=== PATIENT | male | born 1975 | race Caucasian/White ===

== ENCOUNTER 2020-05-18 07:21 | Inpatient (IN) | payer SELFPAY ==
--- NOTE | 2020-05-18 07:30 | PDOC ---
Attending Attestation - Resident Resident Name: VadimBest marcus - ED Attending Attestation I have performed the following: I have examined & evaluated the patient, The case was reviewed & discussed with the resident, I agree w/resident's findings & plan, Exceptions are as noted - HPI HPI: 05/18/20 07:28 45 M with h/o ETOH abuse, HLD, presenting to ED with N+V and abdominal pain. Pt reports mid-epigastric pain associated with N+V that started 2 days ago. He reports several episodes of NBNB vomitus. No diarrhea/constipation. Pt admits to daily heavy ETOH use, liquor and beer. - Physicial Exam PE: 05/18/20 07:29 See resident exam - Medical Decision Making 05/18/20 07:29 45 M with abdominal pain, N+V. - Labs, lipase - GI cocktail 05/18/20 11:50 Labs with elevated lactate, otherwise normal CT unremarkable Will repeat lactate, reassess 05/18/20 13:34 Lactate uptrending despite 2L fluid resuscitation Pt continues to have abdominal pain Discharge - Discharge Information Problems reviewed: Yes Clinical Impression/Diagnosis: Abdominal pain, Alcohol abuse, Gastritis - Follow up/Referral - Patient Discharge Instructions - Post Discharge Activity
[2020-05-18] MEDS ORDERED: morphine SULFATE 4 MG/ML VIAL IVPUSH ONE (07:31)
[2020-05-18] MEDS ORDERED: LACTATED RINGERS SOLUTION 1000 ML INFUS.BAG IV ONE ×3 (07:33→12:16)
[2020-05-18] MEDS ORDERED: ONDANSETRON 4 MG/2 ML VIAL IVPUSH ONE (07:33)
--- NOTE | 2020-05-18 07:35 | PDOC ---
History of Present Illness - General Chief Complaint: Pain, Acute Stated Complaint: ALCOHOL INTOXICATION Time Seen by Provider: 05/18/20 07:27 History Source: Patient - History of Present Illness Initial Comments: 05/18/20 07:34 2 days N/V/abdominal pain reports 30x nbnb vomiting over 2 days etoh intox, "bottle of liquor" + beer requesting detox Friend called EMS, concerned for vomiting, abdominal pain on exam: tender abdomen w/guarding tachycardic on arrival Past History - Medical History Allergies/Adverse Reactions: Allergies Allergy/AdvReac Type Severity Reaction Status Date / Time No Known Allergies Allergy Verified 05/18/20 07:48 Review of Systems - Review of Systems Able to Perform ROS?: Yes Comments:: 05/18/20 07:43 GENERAL/CONSTITUTIONAL: Intoxication. No fever or chills. No weakness. HEAD, EYES, EARS, NOSE AND THROAT: No change in vision. No ear pain or discharge. No sore throat. CARDIOVASCULAR: No chest pain or shortness of breath RESPIRATORY: No cough, wheezing, or hemoptysis. GASTROINTESTINAL: Nausea, vomiting, abdominal pain. No diarrhea or constipation. GENITOURINARY: No dysuria, frequency, or change in urination. MUSCULOSKELETAL: No joint or muscle swelling or pain. No neck or back pain. SKIN: No rash NEUROLOGIC: No headache, vertigo, loss of consciousness, or change in strength/sensation. ENDOCRINE: No increased thirst. No abnormal weight change HEMATOLOGIC/LYMPHATIC: No anemia, easy bleeding, or history of blood clots. ALLERGIC/IMMUNOLOGIC: No hives or skin allergy. *Physical Exam - Physical Exam 05/18/20 07:44 GENERAL: Awake, alert, and fully oriented, groaning. Intoxicated. HEAD: No signs of trauma, normocephalic, atraumatic EYES: PERRLA, EOMI, sclera anicteric, conjunctiva clear ENT: Auricles normal inspection, hearing grossly normal, nares patent, oropharynx clear without exudates. Moist mucosa NECK: Normal ROM, supple, no lymphadenopathy, JVD, or masses LUNGS: No distress, speaks full sentences, clear to auscultation bilaterally HEART: Regular rate and rhythm, normal S1 and S2, no murmurs, rubs or gallops, peripheral pulses normal and equal bilaterally. ABDOMEN: Diffusely tender with guarding. Soft, normoactive bowel sounds. No rebound. No masses EXTREMITIES : Normal inspection, Normal range of motion, no edema. No clubbing or cyanosis NEUROLOGICAL: Cranial nerves II through XII grossly intact. Normal speech, no focal sensorimotor deficits SKIN: Warm, Dry, normal turgor, no rashes or lesions noted ED Treatment Course - LABORATORY CBC & Chemistry Diagram: 05/18/20 07:25 05/18/20 07:25 - RADIOLOGY Radiology Studies Ordered: Category Date Time Status ABDOMEN & PELVIS CT WITH CONTR [CT] Stat CT Scan 05/18/20 07:31 Ordered CHEST X-RAY PORTABLE* [RAD] Stat Radiology 05/18/20 07:32 Ordered Medical Decision Making - Medical Decision Making 05/18/20 07:36 45M p/w etoh intox, abdominal pain, frequent n/v. Ddx pancreatitis, appendicitis, cholecystitis, ACS Plan: CBC CMP EKG CXR Cardiac profile Lactate PT/INR, APTT Lipase Ammonia Morphine 4mg 1L LR Zofran Dispo: Pending 05/18/20 10:20 CT - negative for acute process
[2020-05-18] MEDS ORDERED: morphine SULFATE 4 MG/ML VIAL ONE ×2 (07:50→12:19)
[2020-05-18 08:13] LABS: HEMATOCRIT 42.6 % (35.4-49); HEMOGLOBIN 14.9 GM/dL (11.7-16.9); MCH 31.3 pg (25.7-33.7); MCHC 34.9 g/dl (32.0-35.9); MEAN CELL VOLUME 89.7 fl (80-96); MEAN PLT VOLUME 9.2 fl (7.5-11.1); PLATELET COUNT 205 K/MM3 (134-434); RBC 4.75 M/mm3 (4.00-5.60); RDW 13.4 % (11.9-15.9); WHITE BLOOD COUNT 11.6 K/mm3 (4.0-10.0)
[2020-05-18 08:33] LABS: INR 0.89 (0.83-1.09); PROTHROMBIN TIME (PATIENT) 10.5 SEC (9.7-13.0)
[2020-05-18 08:35] LABS: ACTIVATED PTT 30.9 SECONDS (25.2-36.5)
[2020-05-18 08:54] LABS: ALBUMIN 3.9 g/dl (3.4-5.0); ANION GAP 14 MMOL/L (8-16); BILIRUBIN,TOTAL 0.5 mg/dL (0.2-1); BLOOD UREA NITROGEN 5.6 mg/dL (7-18); CALCIUM 8.7 mg/dL (8.5-10.1); CHLORIDE 97 mmol/L (98-107); CO2 25 mmol/L (21-32); CREATININE 0.7 mg/dL (0.55-1.3); GLUCOSE,RANDOM 95 mg/dL (74-106); LIPASE 294 U/L (73-393); POTASSIUM 3.2 mmol/L (3.5-5.1); SGOT/AST 117 U/L (15-37); SGPT/ALT 92 U/L (13-61); SODIUM 136 mmol/L (136-145); TOT PROT 7.3 g/dl (6.4-8.2)
[2020-05-18 08:57] LABS: ALK PHOS 122 U/L (45-117)
[2020-05-18] MEDS ORDERED: FAMOTIDINE 20 MG/50 ML IVPB 20 MG/50 ML MG IVPB ONE ×2 (09:11→09:52)
[2020-05-18] MEDS ORDERED: SODIUM CHLORIDE 1,000 ML IV STA (10:42)
--- NOTE | 2020-05-18 11:35 | EKG ---
Test Reason : Blood Pressure : / mmHG Vent. Rate : 107 BPM Atrial Rate : 107 BPM P-R Int : 122 ms QRS Dur : 084 ms QT Int : 348 ms P-R-T Axes : 017 054 039 degrees QTc Int : 464 ms POOR DATA QUALITY, INTERPRETATION MAY BE ADVERSELY AFFECTED SINUS TACHYCARDIA OTHERWISE NORMAL ECG NO PREVIOUS ECGS AVAILABLE Confirmed by INDIA ARELLANO MD ([id number]) on 05/18/2020 11:34:34 AM Referred By: Confirmed By:INDIA ARELLANO MD
[2020-05-18] MEDS ORDERED: morphine CARPU-JECT 4 MG/1 ML DISP.SYRIN IVPUSH ONE (12:16)
--- NOTE | 2020-05-18 17:12 | HP ---
CHIEF COMPLAINT: Etoh withdrawal PCP: denies HISTORY OF PRESENT ILLNESS: 45 M h/o Etoh abuse, presents with abdominal pain 2-3 days. Last drink 7-8 hours prior to admission. Endorses generalized abomdinal pain a/w nausea but no vomiting seen in ED. Denies diarrhea/CP/SOB/Cough, denies black stools. Poor to follow up, abuses alcohol regularly. ER course was notable for: (1) Fluids given (2) LA >3 despite fluids (3) CT A/P C+, neg. for acute pathology Recent Travel: denies PAST MEDICAL HISTORY: as above PAST SURGICAL HISTORY: denies Social History: Smoking: denies Alcohol: drinks regularly Drugs: denies Allergies No Known Allergies Allergy (Verified 05/18/20 07:48) HOME MEDICATIONS: denies taking any meds PHYSICAL EXAMINATION Vital Signs - 24 hr 05/18/20 05/18/20 05/18/20 07:32 11:15 12:36 Temperature 99 F 98.1 F Pulse Rate 113 H Pulse Rate [ 93 H 96 H Right Radial] Respiratory 16 22 H 19 Rate Blood Pressure 130/89 Blood Pressure 144/85 125/77 [Left Arm] O2 Sat by Pulse 99 99 96 Oximetry (%) 05/18/20 14:58 Temperature Pulse Rate Pulse Rate [ 103 H Right Radial] Respiratory 20 Rate Blood Pressure Blood Pressure 139/95 [Left Arm] O2 Sat by Pulse 99 Oximetry (%) GA AAox3, tremulous, tired appearing, speaking Cook Islander HEENT NC/AT, EOMi, RUTH, neck supple Chest CTAB CVS S1, S2+, RRR Abd generalized tenderness, epigastric tenderness to palpation w/ rebound, no guarding BS+ Ext no LE edema Laboratory Results - last 24 hr 05/18/20 05/18/20 05/18/20 07:25 07:25 07:25 WBC 11.6 H RBC 4.75 Hgb 14.9 Hct 42.6 MCV 89.7 MCH 31.3 MCHC 34.9 RDW 13.4 Plt Count 205 MPV 9.2 PT with INR 10.50 INR 0.89 PTT (Actin FS) 30.9 Sodium 136 Potassium 3.2 L Chloride 97 L Carbon Dioxide 25 Anion Gap 14 BUN 5.6 L Creatinine 0.7 Est GFR (CKD-EPI)AfAm 132.09 Est GFR (CKD-EPI)NonAf 113.97 POC Glucometer Random Glucose 95 Lactic Acid Calcium 8.7 Total Bilirubin 0.5 AST 117 H ALT 92 H Alkaline Phosphatase 122 H Ammonia Creatine Kinase 229 Creatine Kinase Index No Result Required. CK-MB (CK-2) < 1.0 Troponin I < 0.02 Total Protein 7.3 Albumin 3.9 Lipase 294 Blood Type Antibody Screen 05/18/20 05/18/20 05/18/20 07:25 07:25 07:25 WBC RBC Hgb Hct MCV MCH MCHC RDW Plt Count MPV PT with INR INR PTT (Actin FS) Sodium Potassium Chloride Carbon Dioxide Anion Gap BUN Creatinine Est GFR (CKD-EPI)AfAm Est GFR (CKD-EPI)NonAf POC Glucometer Random Glucose Lactic Acid 3.1 H* Calcium Total Bilirubin AST ALT Alkaline Phosphatase Ammonia 29.80 Creatine Kinase Creatine Kinase Index CK-MB (CK-2) Troponin I Total Protein Albumin Lipase Blood Type O POSITIVE Antibody Screen Negative 05/18/20 05/18/20 05/18/20 07:35 08:03 11:35 WBC RBC Hgb Hct MCV MCH MCHC RDW Plt Count MPV PT with INR INR PTT (Actin FS) Sodium Potassium Chloride Carbon Dioxide Anion Gap BUN Creatinine Est GFR (CKD-EPI)AfAm Est GFR (CKD-EPI)NonAf POC Glucometer 110 Random Glucose Lactic Acid 3.6 H* Calcium Total Bilirubin AST ALT Alkaline Phosphatase Ammonia Creatine Kinase Creatine Kinase Index CK-MB (CK-2) Troponin I Total Protein Albumin Lipase Blood Type O POSITIVE Antibody Screen Negative 05/18/20 16:10 WBC RBC Hgb Hct MCV MCH MCHC RDW Plt Count MPV PT with INR INR PTT (Actin FS) Sodium Potassium Chloride Carbon Dioxide Anion Gap BUN Creatinine Est GFR (CKD-EPI)AfAm Est GFR (CKD-EPI)NonAf POC Glucometer 101 Random Glucose Lactic Acid Calcium Total Bilirubin AST ALT Alkaline Phosphatase Ammonia Creatine Kinase Creatine Kinase Index CK-MB (CK-2) Troponin I Total Protein Albumin Lipase Blood Type Antibody Screen ASSESSMENT/PLAN: 45 M Etoh abuse Etoh withdrawal Suspected Etoh induced gastritis v.s. UGIB Lactic acidosis d/t alcoholic/starvation ketosis Plan: Aggressive IVF w/ LR (K repalcement) Serial abdominal exams FOBT if positive, consult GI for EGD/Colonoscopy PPI BID Full liquid diet for now Avoid AC/NSAIDs SCD for now until FOBT negative/GIB ruled out Serial CIWA, Librium protocol Visit type - Emergency Visit Emergency Visit: Yes ED Registration Date: 05/18/20 Care time: The patient presented to the Emergency Department on the above date and was hospitalized for further evaluation of their emergent condition. - New Patient This patient is new to me today: Yes Date on this admission: 05/18/20 - Critical Care Critical Care patient: No
[2020-05-18] MEDS ORDERED: POTASSIUM CHLORIDE TABS 20 MEQ TABLET.ER (FP) PO ONE (17:14)
[2020-05-18] MEDS ORDERED: chlordiazePOXIDE HCL 25 MG CAPSULE PO ONE (17:17)
[2020-05-18] MEDS ORDERED: chlordiazePOXIDE HCL 10 MG CAPSULE PO PRN (17:17)
[2020-05-18] MEDS: LACTATED RINGERS SOLUTION 1,000 ML/1,000 ML INFUS.BAG IV SCH (17:36)
[2020-05-18] MEDS: MULTIVITAMINS (DAILY MVI) TABLET (FP) PO SCH (17:36)
[2020-05-18] MEDS: FOLIC ACID 1 MG TABLET (FP) PO SCH (17:36)
[2020-05-18] MEDS: THIAMINE HCL 100 MG TABLET (FP) PO SCH (17:39)
[2020-05-18 18:19] VITALS: BMI 32.5
[2020-05-18] MEDS: ACETAMINOPHEN 325 MG TABLET (FP) PO PRN (18:46)
[2020-05-18] MEDS: chlordiazePOXIDE HCL 25 MG CAPSULE PO SCH (21:17)
[2020-05-18] MEDS: PANTOPRAZOLE 40 MG TABLET PO SCH (21:17)
[2020-05-19] MEDS: LACTATED RINGERS SOLUTION 1,000 ML/1,000 ML INFUS.BAG IV SCH ×3 (03:50→22:07)
[2020-05-19] MEDS: chlordiazePOXIDE HCL 25 MG CAPSULE PO SCH ×4 (05:22→22:06)
[2020-05-19 06:47] LABS: BASO % 0.4 % (0-2.0); EOS % 4.2 % (0-4.5); HEMATOCRIT 39.5 % (35.4-49); HEMOGLOBIN 13.5 GM/dL (11.7-16.9); LYMPH % 35.2 % (8-40); MCH 30.9 pg (25.7-33.7); MCHC 34.3 g/dl (32.0-35.9); MEAN CELL VOLUME 90.2 fl (80-96); MONO % 5.7 % (3.8-10.2); NEUT % 54.5 % (42.8-82.8); PLATELET COUNT 172 K/MM3 (134-434); RBC 4.38 M/mm3 (4.00-5.60); RDW 13.2 % (11.9-15.9); WHITE BLOOD COUNT 4.9 K/mm3 (4.0-10.0)
[2020-05-19 07:19] LABS: ALBUMIN 3.5 g/dl (3.4-5.0); BILIRUBIN,TOTAL 0.8 mg/dL (0.2-1); BLOOD UREA NITROGEN 8.4 mg/dL (7-18); CALCIUM 8.9 mg/dL (8.5-10.1); CREATININE 0.7 mg/dL (0.55-1.3); POTASSIUM 3.7 mmol/L (3.5-5.1); TOT PROT 6.5 g/dl (6.4-8.2)
[2020-05-19] MEDS: ACETAMINOPHEN 325 MG TABLET (FP) PO PRN (08:50)
[2020-05-19] MEDS: FOLIC ACID 1 MG TABLET (FP) PO SCH (10:04)
[2020-05-19] MEDS: MULTIVITAMINS (DAILY MVI) TABLET (FP) PO SCH (10:04)
[2020-05-19] MEDS: PANTOPRAZOLE 40 MG TABLET PO SCH ×2 (10:05→22:06)
[2020-05-19] MEDS: THIAMINE HCL 100 MG TABLET (FP) PO SCH (10:05)
[2020-05-19] MEDS ORDERED: LORazepam 2 MG/ML SDV VIAL IVPUSH PRN (12:24)
--- NOTE | 2020-05-19 12:55 | PN ---
Teaching Attending Note Name of Resident: Lowell Ayoub ATTENDING PHYSICIAN STATEMENT I saw and evaluated the patient. I reviewed the resident's note and discussed the case with the resident. I agree with the resident's findings and plan as documented. SUBJECTIVE: Seen and examined at bedside. Patient is alert oriented x3 in Armenian but appea rs lethargic. Has positive hand tremors and tongue fasciculations. CT abdomen pelvis and ultrasound both negative for acute intra-abdominal pathology. OBJECTIVE: Last Vital Signs Temp Pulse Resp BP Pulse Ox 99.3 F 98 H 20 125/80 96 05/19/20 10:02 05/19/20 10:02 05/19/20 10:02 05/19/20 10:02 05/18/20 21:00 PE; per resident note Labs/Imaging: reviewed ASSESSMENT AND PLAN: 45-year-old male past medical history of EtOH abuse, presents with abdominal pain for 2 to 3 days with associated nausea and vomiting. Admitted for alcohol withdrawal #Alcohol withdrawal IV fluids Librium taper PRN Ativan CIWA protocol Replete electrolytes Thiamine and B12 #Abdominal pain CT and ultrasound both negative for acute intra-abdominal pathology. Likely represents EtOH induced gastritis PPI twice daily #Elevated lactic acid: Resolved Likely in the setting of dehydration/EtOH. No sign of infectious etiology
--- NOTE | 2020-05-19 14:08 | PN ---
Physical Exam: SUBJECTIVE: Patient seen and examined at bedside. No acute distress. No acute events overnight. OBJECTIVE: Vital Signs Period Temp Pulse Resp BP Sys/Waldrop Pulse Ox Last 24 Hr 98.8 F-99.3 F 88-103 19-20 114-139/70-95 96-99 GENERAL: NAD. Not tremulous HEAD: Normal with no signs of trauma. EYES: EOMI Sclera Clear ENT: MMM NECK: Trachea midline, full range of motion, supple. LUNGS: Clear HEART: RRR S1S2 ABDOMEN: Soft. Mild epigastric tenderness. No guarding or rebound. EXTREMITIES: No CCE NEUROLOGICAL: Cranial nerves II through XII grossly intact. PSYCH: Normal mood, normal affect. Laboratory Results - last 24 hr 05/18/20 05/18/20 05/19/20 16:10 21:05 06:23 WBC 4.9 RBC 4.38 Hgb 13.5 Hct 39.5 MCV 90.2 MCH 30.9 MCHC 34.3 RDW 13.2 Plt Count 172 MPV 9.0 Absolute Neuts (auto) 2.7 Neutrophils % 54.5 Lymphocytes % 35.2 Monocytes % 5.7 Eosinophils % 4.2 Basophils % 0.4 Nucleated RBC % 0 Sodium Potassium Chloride Carbon Dioxide Anion Gap BUN Creatinine Est GFR (CKD-EPI)AfAm Est GFR (CKD-EPI)NonAf POC Glucometer 101 Random Glucose Lactic Acid 1.9 Calcium Total Bilirubin AST ALT Alkaline Phosphatase Total Protein Albumin 05/19/20 06:23 WBC RBC Hgb Hct MCV MCH MCHC RDW Plt Count MPV Absolute Neuts (auto) Neutrophils % Lymphocytes % Monocytes % Eosinophils % Basophils % Nucleated RBC % Sodium 136 Potassium 3.7 Chloride 99 Carbon Dioxide 29 Anion Gap 8 BUN 8.4 Creatinine 0.7 Est GFR (CKD-EPI)AfAm 132.09 Est GFR (CKD-EPI)NonAf 113.97 POC Glucometer Random Glucose 96 Lactic Acid Calcium 8.9 Total Bilirubin 0.8 AST 57 H ALT 66 H Alkaline Phosphatase 103 Total Protein 6.5 Albumin 3.5 Active Medications Generic Name Dose Route Start Last Admin Trade Name Freq PRN Reason Stop Dose Admin Acetaminophen 650 mg 05/18/20 18:28 05/19/20 08:50 Tylenol - PO 650 mg Q12H PRN Administration Fever Or Pain Chlordiazepoxide HCl 25 mg 05/18/20 13:00 05/19/20 05:22 Librium - PO 05/19/20 21:01 25 mg Q8H RICARDO Administration Chlordiazepoxide HCl 15 mg 05/20/20 05:00 Librium - PO 05/20/20 21:01 Q8H RICARDO Chlordiazepoxide HCl 10 mg 05/21/20 05:00 Librium - PO 05/21/20 21:01 Q8H RICARDO Chlordiazepoxide HCl 10 mg 05/22/20 05:00 Librium - PO 05/22/20 05:01 ONCE ONE Folic Acid 1 mg 05/18/20 17:15 05/19/20 10:04 Folic Acid - PO 1 mg DAILY RICARDO Administration Lactated Ringer's 1,000 ml in 1,000 mls @ 100 mls/hr 05/18/20 17:15 05/19/20 03:50 Lactated Ringers Solution IV 100 mls/hr ASDIR RICARDO Administration Lorazepam 1 mg 05/19/20 12:24 Ativan Injection - IVPUSH Q6H PRN WITHDRAWAL(CONT SUBST) Multivitamins/Minerals/Vitamin C 1 tab 05/18/20 17:15 05/19/20 10:04 Tab-A-Vit - PO 1 tab DAILY RICARDO Administration Pantoprazole Sodium 40 mg 05/18/20 22:00 05/19/20 10:05 Protonix - PO 40 mg BID RICARDO Administration Thiamine HCl 100 mg 05/18/20 17:15 05/19/20 10:05 Vitamin B1 - PO 100 mg DAILY RICARDO Administration ASSESSMENT/PLAN: Patient is a 45 y/o M with h/o ETOH abuse, HLD who presented to [facility] with N+V and abdominal pain. Admitted for acute alcohol withdrawal . #Alcohol withdrawal Lactated Ringer's @100 cc/hr Patient on a Librium taper with PRN Ativan CIWA protocol Replete electrolytes Thiamine and B12 #Abdominal pain -Imaging of patient's abdomen negative for acute pathology. Patient currently on Protonix 40 mg PO BID #FEN -LR@100 -Monitor Electorlytes -Full liquid diet #DVT ppx -Hep SQTID #Dispo: -Med-Surg Visit type - Emergency Visit Emergency Visit: Yes ED Registration Date: 05/18/20 Care time: The patient presented to the Emergency Department on the above date and was hospitalized for further evaluation of their emergent condition. - New Patient This patient is new to me today: No - Critical Care Critical Care patient: No - Discharge Referral Referred to [facility] Med [facility].C[facility] No ATTENDING PHYSICIAN STATEMENT I saw and evaluated the patient. I reviewed the resident's note and discussed the case with the resident. I agree with the resident's findings and plan as documented. SUBJECTIVE: OBJECTIVE: ASSESSMENT AND PLAN:
[2020-05-20] MEDS: LACTATED RINGERS SOLUTION 1,000 ML/1,000 ML INFUS.BAG IV SCH (01:44)
[2020-05-20] MEDS: chlordiazePOXIDE 5 MG CAPSULE PO SCH ×2 (05:40→12:36)
[2020-05-20 07:18] LABS: HEMATOCRIT 40.6 % (35.4-49); HEMOGLOBIN 13.9 GM/dL (11.7-16.9); MCH 30.9 pg (25.7-33.7); MCHC 34.3 g/dl (32.0-35.9); MEAN CELL VOLUME 90.2 fl (80-96); MEAN PLT VOLUME 9.5 fl (7.5-11.1); PLATELET COUNT 170 K/MM3 (134-434); RDW 13.3 % (11.9-15.9); WHITE BLOOD COUNT 4.7 K/mm3 (4.0-10.0)
[2020-05-20 07:41] LABS: BLOOD UREA NITROGEN 7.1 mg/dL (7-18); CALCIUM 8.7 mg/dL (8.5-10.1); CREATININE 0.6 mg/dL (0.55-1.3); PHOSPHOROUS 3.3 mg/dL (2.5-4.9); POTASSIUM 3.7 mmol/L (3.5-5.1)
[2020-05-20] MEDS: chlordiazePOXIDE HCL 25 MG CAPSULE PO SCH (07:55)
[2020-05-20] MEDS: PANTOPRAZOLE 40 MG TABLET PO SCH (09:52)
[2020-05-20] MEDS: THIAMINE HCL 100 MG TABLET (FP) PO SCH (09:52)
[2020-05-20] MEDS: MULTIVITAMINS (DAILY MVI) TABLET (FP) PO SCH (09:52)
[2020-05-20] MEDS: FOLIC ACID 1 MG TABLET (FP) PO SCH (09:52)
--- NOTE | 2020-05-20 12:15 | PN ---
Teaching Attending Note Name of Resident: Jack Patel ATTENDING PHYSICIAN STATEMENT I saw and evaluated the patient. I reviewed the resident's note and discussed the case with the resident. I agree with the resident's findings and plan as documented. SUBJECTIVE: Seen and examined at bedside. Oriented x3 without hand tremors or tongue fasciculations. Patient is medically cleared for discharge. OBJECTIVE: Last Vital Signs Temp Pulse Resp BP Pulse Ox 98.3 F 88 19 110/74 99 05/20/20 09:50 05/20/20 09:50 05/20/20 09:50 05/20/20 09:50 05/20/20 09:00 PE; per resident note Labs/Imaging: reviewed ASSESSMENT AND PLAN: 45-year-old male past medical history of EtOH abuse, presents with abdominal pain for 2 to 3 days with associated nausea and vomiting. Admitted for alcohol withdrawal. . Patient was found to be dehydrated with elevated lactic acid and was treated with fluids with resolution. Abdominal pain resolved with fluids and PPI and was likely due to EtOH induced gastritis. CT and ultrasound were negative for acute intra-abdominal pathology. Patient's withdrawals are controlled and he is medically cleared for discharge.
[2020-05-20 13:17] VITALS: BP 125/87; PULSE 90; TEMP 98.8
--- NOTE | 2020-05-20 15:36 | DS ---
Physical Exam: SUBJECTIVE: Patient seen and examined at bedside. The patient says that he wants to go home soon. The patient denies fever/chills, diarrhea, constipation, fatigue, abdominal pain, nausea/vomiting, tremors, sweating, anxiety, agitation, itching, hallucinations, and headache. The patient had no tremor when he stretched his arms in front of his body. The patient had a minimal tremor in his tongue when he stuck his tongue out in the physical exam. His CIWA score was a 0 for alcohol withdrawal. OBJECTIVE: Vital Signs Period Temp Pulse Resp BP Sys/Waldrop Pulse Ox Last 24 Hr 97.7 F-98.8 F 79-98 18-20 110-133/68-87 98-99 PHYSICAL EXAM GENERAL: The patient is awake, alert, and fully oriented, in no acute distress. HEAD: Normal with no signs of trauma. EYES: Extraocular movements intact. ENT: Ears normal, nares patent, oropharynx clear without exudates, moist mucous membranes. NECK: Trachea midline, full range of motion, supple. LUNGS: Breath sounds equal, clear to auscultation bilaterally, no wheezes, no crackles, no accessory muscle use. HEART: Regular rate and rhythm, S1, S2 without murmur, rub or gallop. ABDOMEN: Soft, nontender, nondistended, normoactive bowel sounds, no guarding, no rebound, no masses. EXTREMITIES: 2+ pulses, warm, well-perfused, no edema. NEUROLOGICAL: Normal speech, gait not observed. PSYCH: Normal mood, normal affect. SKIN: Warm, dry, normal turgor, no rashes or lesions noted. LABS Laboratory Results - last 24 hr 05/20/20 05/20/20 06:48 06:48 WBC 4.7 RBC 4.50 Hgb 13.9 Hct 40.6 MCV 90.2 MCH 30.9 MCHC 34.3 RDW 13.3 Plt Count 170 MPV 9.5 Sodium 138 Potassium 3.7 Chloride 103 Carbon Dioxide 26 Anion Gap 9 BUN 7.1 Creatinine 0.6 Est GFR (CKD-EPI)AfAm 140.73 Est GFR (CKD-EPI)NonAf 121.43 Random Glucose 84 Calcium 8.7 Phosphorus 3.3 Magnesium 2.0 HOSPITAL COURSE: Date of Admission:05/18/20 45 year old male patient with past medical history of alcohol abuse who prese nted to the ED with abdominal pain for 2 to 3 days with associated nausea and vomiting, and was admitted for alcohol withdrawal. The patient was dehydrated with a lactic acid of 3.6 and was given IV fluids which brought his lactic acid back to within normal limits. For his abdominal pain, the patient was placed on a PPI, with resolution of his pain, which may have been alcohol-induced gastritis. Ultrasound, CT of his abdomen/pelvis, and CXR were negative except for diffuse hepatic steatosis. The patient was instructed on the dangers of alcohol abuse and offered to come to [facility]. Date of Discharge: 05/20/20 Minutes to complete discharge: 41 Discharge Summary Problems reviewed: Yes Reason For Visit: INTRACTABLE PAIN Current Active Problems Alcohol abuse (Chronic) Condition: Good - Instructions Diet, Activity, Other Instructions: In Danish: You were admitted to the hospital for abdominal pain, nausea, and vomiting. We evaluated you with blood work, lab work, and imaging including a CT scan of you abdomen and pelvis. Your evaluation suggested that you were having alcohol withdrawal with dehydration and stomach irritation caused by drinking alcohol. You were given IV fluids and medication and your symptoms got better. Recommendation To avoid a reoccurrence of your symptoms, please stop drinking alcohol. The maximum dose of alcohol should only be a maximum of 2 drinks per day. Drinking alcohol can harm the whole body, including the stomach, the heart, the brain, and the liver. Imaging Findings While you were at the hospital, a CT scan of your abdomen and pelvis showed a liver abnormality that may be a fatty liver. Please follow up with your primary care physician about these findings and whether you will need to see a spec ialist for your liver. Medication Please your all of your medication as prescribed. To prevent withdrawals from drinking alcohol, we have prescribed you Librium for 2 days. Take one pill tonight and then three pills tomorrow every 8 hours. If you will be drinking alcohol, do NOT take the Librium medication. The Librium medication is to help avoid alcohol withdrawal symptoms. If you will STOP drinking alcohol, then please take the Librium medication to prevent alcohol withdrawal symptoms. If you are taking the Librium medication and not drinking alcohol, then START Librium 10 mg one pill once tonight by mouth, and then Librium 10 mg one pill every 8 hours tomorrow. Please START taking Folic Acid 1 mg daily by mouth Please START taking Thiamine 100 mg daily by mouth. Too little Thiamine in your diet because of alcohol can cause brain damage. Please START taking a Multivitamin pill daily by mouth Please START taking Pantoprazole 40 mg daily by mouth If you would like to detoxify from alcohol, you are welcome to come to with Dr. Bhandari. Follow ups Please follow up with your primary care doctor, or the one we have provided for you Dr. Cassidy Moran, within 1 week. If you feel any worsening of your symptoms, chest pain, difficulty breathing, tremors, hallucinations, abdominal pain, or any worsening of your condition, please come back to the emergency room or call 911. En Espaol: Fue ingresado en el hospital por dolor abdominal, nuseas y vmitos. Lo evaluamos con anlisis de simon, anlisis de laboratorio e imgenes, incluida denzel tomografa computarizada de dumont abdomen y pelvis. Dumont evaluacin sugiri que estaba teniendo abstinencia de alcohol con deshidratacin e irritacin estomacal causada por beber alcohol. Le dieron lquidos y medicamentos por va intravenosa y henri sntomas mejoraron. Recomendacin Para evitar la recurrencia de henri sntomas, deje de beber alcohol. La dosis mxima de alcohol solo debe ser un mximo de 2 bebidas / da. Beber alcohol puede daar todo el cuerpo, incluido el estmago, el corazn, el cerebro y el hgado. Hallazgos de imgenes Mientras estaba en el hospital, denzel tomografa computarizada de dumont abdomen y pelvis mostr denzel anomala heptica que puede ser un hgado graso. Denny un seguimiento con dumont mdico de atencin primaria sobre estos hallazgos y si necesita juan a un especialista para dumont hgado. Medicamento Por favor, tome todos henri medicamentos segn lo prescrito. Para evitar retiros por beber alcohol, le hemos recetado Librium asuncion 2 duval. [place] denzel pldora esta noche y luego michele pldoras maana cada 8 horas. Si va a varun alcohol, NO tome el medicamento Librium. El medicamento Librium es para ayudar a evitar los sntomas de abstinencia de alcohol. Si MAXWELL de beber alcohol, tome el medicamento Librium para prevenir los sntomas de abstinencia de alcohol. Si est tomando el medicamento Librium y no val alcohol, entonces COMIENCE Librium 10 mg denzel pldora denzel vez por la noche por la boca, y luego Librium 10 mg denzel pldora cada 8 horas maana. COMIENCE a varun cido flico 1 mg al da por va oral COMIENCE a varun Thiamine 100 mg diariamente por va oral. Demasiada poca tiamina en dumont dieta debido al alcohol puede causar marilyn cerebral. COMIENCE a varun denzel pldora multivitamnica diariamente por va oral COMIENCE a varun Pantoprazol 40 mg al da por va oral Si desea desintoxicarse del alcohol, puede venir a con Dr. Bhandari. Seguimientos Denny un seguimiento con dumont mdico de atencin primaria o con el que le hemos proporcionado, Dr. Cassidy Moran, dentro de 1 semana. Si siente un empeoramiento de henri sntomas, dolor en el pecho, dificultad para respirar, temblores, alucinaciones, dolor abdominal o cualquier empeoramiento de dumont condicin, vuelva a la shar de emergencias o llame al 911. Referrals: Vance Bhandari DO [Staff Physician] - 1 Week Cassidy Moran MD [Staff Physician] - 1 Week Disposition: HOME - Home Medications Comprehensive Discharge Medication List: Ambulatory Orders Chlordiazepoxide [Librium -] 10 mg PO ONCE #4 capsule MDD 3 pills 05/20/20 Folic Acid - 1 mg PO DAILY #30 tablet 05/20/20 Multivitamins [Multivit ([facility])] 1 tab PO DAILY #30 tab 05/20/20 Pantoprazole Sodium [Protonix] 40 mg PO DAILY 30 Days #30 tablet. 05/20/20 Thiamine HCl [Vitamin B1 -] 100 mg PO DAILY #30 tablet 05/20/20 This patient is new to me today: Yes Date on this admission: 05/21/20 Emergency Visit: Yes ED Registration Date: 05/18/20 Care time: The patient presented to the Emergency Department on the above date and was hospitalized for further evaluation of their emergent condition. Critical Care patient: No - Discharge Referral Referred to [facility] Med [facility] No ATTENDING PHYSICIAN STATEMENT I saw and evaluated the patient. I reviewed the resident's note and discussed the case with the resident. I agree with the resident's findings and plan as documented. SUBJECTIVE: OBJECTIVE: ASSESSMENT AND PLAN:
[2020-05-21] MEDS ORDERED: chlordiazePOXIDE HCL 10 MG CAPSULE PO PRN
[2020-05-21] MEDS ORDERED: chlordiazePOXIDE HCL 10 MG CAPSULE PO SCH (05:00)
[2020-05-22] MEDS ORDERED: chlordiazePOXIDE HCL 10 MG CAPSULE PO ONE (05:00)
== END 2020-05-20 17:12 | disposition home or self-care (01) | DRG 775 ==
LOC: JER 07:21 → EDBD 07:21 → UNDOADMIN 13:26 → JERBED 13:26 → J4S 15:57
PROVIDERS: ATTEND Internal Medicine
DX: F10.230 Alcohol dependence with withdrawal, uncomplicated (principal); E87.2 Acidosis; K29.20 Alcoholic gastritis without bleeding; E78.5 Hyperlipidemia, unspecified; E86.0 Dehydration; K76.0 Fatty (change of) liver, not elsewhere classified; R11.2 Nausea with vomiting, unspecified
CPT/HCPCS: 36415; 71045-TC-FY; 74177-TC; 76705-TC; 80048; 80053; 82140; 82550; 82553; 82962; 83605; 83690; 83735; 84100; 84484; 85025; 85027; 85610; 85730; 86850; 86900; 86901; 87040; 93005; 93010; 99285-25; Q9967; U0003